=== PATIENT | female | born 1950 | race Caucasian/White ===

== ENCOUNTER 2023-03-18 11:00 | Emergency (ER) | payer MEDICARE ==
[~2023-03-18] VITALS: Ht 160 cm; Wt 74.5 kg
[2023-03-18 11:49] VITALS: BP 114/63; PULSE 79; RESP 16; TEMP 97.7; O2SAT 99
== END 2023-03-18 14:41 | disposition left against medical advice (07) ==
LOC: ER 11:01
DX: M25.551 Pain in right hip (principal); Z53.21 Procedure and treatment not carried out due to patient leaving prior to being seen by health care provider
CPT/HCPCS: 99281